=== PATIENT | male | born 1995 | race African-American/Black ===

== ENCOUNTER 2016-06-03 15:39 | Emergency (ER) | payer OTHER ==
[2016-06-03 15:50] VITALS: BP 166/85; PULSE 74; RESP 16; TEMP 97.5; O2SAT 98
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
== END 2016-06-03 17:13 | disposition home or self-care (01) ==
LOC: EDUNIT#
DX: S70.01XA Contusion of right hip, initial encounter (principal); S93.401A Sprain of unspecified ligament of right ankle, initial encounter; S90.31XA Contusion of right foot, initial encounter; F17.200 Nicotine dependence, unspecified, uncomplicated; V49.49XA Driver injured in collision with other motor vehicles in traffic accident, initial encounter; Y92.410 Unspecified street and highway as the place of occurrence of the external cause; Y99.8 Other external cause status; Y93.89 Activity, other specified